=== PATIENT | female | born 1985 | race Hispanic/Latino ===

== ENCOUNTER 2017-05-07 13:31 | Day surgery (SDC) | payer OTHER ==
[~2017-05-07] VITALS: Ht 152.4 cm; Wt 62.7 kg
[~2017-05-07 13:31] MED LIST: IBUPROFEN400 MG PO
[2017-05-07 13:57] VITALS: BP 117/55
[2017-05-07 14:33] LABS: BASOPHIL (%) 0.2 % (0-1); EOSINOPHIL (%) 0.2 % (0-5); HEMATOCRIT 37.1 % (36.0-46.0); HEMOGLOBIN 12.7 G/DL (11.9-15.5); IMMATURE GRANULOCYTE (%) 0.3 % (0.0-0.7); LYMPHOCYTE (%) 21.7 % (15-42); LYMPHOCYTE COUNT 1.4 K/uL (1.0-2.8); MCH 31.1 PG (29.0-34.0); MCHC 34.2 G/DL (30.0-36.0); MCV 90.7 FL (83-99); MONOCYTE (%) 5.8 % (3-12); MONOCYTE COUNT 0.4 K/uL (0-0.8); NEUTROPHIL (%) 71.8 % (45-76); NEUTROPHIL COUNT 4.5 K/uL (1.8-6.4); PLATELET COUNT 235 K/uL (156-360); RBC DIS.WIDTH-CV 12.5 % (11.8-14.6); RBC DIS.WIDTH-SD 41.1 % (39-53); RED BLOOD COUNT 4.09 M/uL (3.80-5.20); WHITE BLOOD COUNT 6.3 K/uL (4.1-10.2)
[2017-05-07] MEDS ORDERED: ENDOCET 5-3251 EACH PO (18:36)
[2017-05-07] MEDS ORDERED: IBUPROFEN800 MG PO (18:36)
[2017-05-07 19:55] VITALS: BP 89/53
[2017-05-07 20:34] VITALS: BP 96/57
[2017-05-07 22:57] VITALS: BP 115/59
[2017-05-08 03:53] VITALS: BP 107/54
[2017-05-08 08:00] VITALS: BP 91/57
== END 2017-05-08 15:03 | disposition home or self-care (01) ==
LOC: SDC 13:31 → ENRESERV 21:14 → 2SOUTH 21:15 → ENRESERV 21:51 → 2EAST 22:45 → ENPENDDIS 05-08 → 2EAST 05-08 15:03
PROVIDERS: Obstetrics & Gynecology Obstetrics
DX: O00.101 Right tubal pregnancy without intrauterine pregnancy (principal); K66.0 Peritoneal adhesions (postprocedural) (postinfection)
CPT/HCPCS: 85025; 86850; 86900; 86901; 88305; G0378; J0131; J0330; J0690; J1100; J1170; J1885; J2250; J2405; J2710; J2765; Q0169; Q0175; S0020